=== PATIENT | male | born 1995 | race Caucasian/White ===

== ENCOUNTER 2018-07-20 18:33 | Emergency (ER) | payer OTHER ==
[2018-07-20] MEDS ORDERED: SULFAMETH/TRIMETH DS 800/160 MG TABLET PO STA (18:57)
[2018-07-20] MEDS ORDERED: cephALEXin 250 MG CAPSULE PO STA (18:57)
--- NOTE | 2018-07-20 18:59 | ED Physician Documentation ---
History of Present Illness - Stated complaint Stated Complaint: L HAND BITE/SWELLING - Chief complaint Chief Complaint: General - History obtained from History obtained from: Patient - History of Present Illness Timing: Last night (Healthy 22-year-old gentleman who is right-handed and active duty in the [employer] thinks he might of gotten bitten by something last night. He has a pustule on the dorsum of the left hand with surrounding redness. No fevers.) Review of Systems Constitutional: reports: Reviewed and negative Nose: reports: Reviewed and negative Cardiac: reports: Reviewed and negative PD PAST MEDICAL HISTORY - Past Medical History Past Medical History: No - Past Surgical History Past Surgical History: No - Present Medications Home Medications: Ambulatory Orders Medication Instructions Recorded Confirmed Cephalexin [Keflex] 500 mg PO Q6H #28 capsule 07/20/18 Sulfamethoxazole/Trimethoprim 1 each PO BID #14 tablet 07/20/18 [Sulfamethoxazole-Tmp Ds Tablet] - Allergies Allergies/Adverse Reactions: Allergies Allergy/AdvReac Type Severity Reaction Status Date / Time No Known Drug Allergies Allergy Verified 07/20/18 18:38 - Social History Does the pt smoke?: Yes Smoking Status: Current every day smoker Does the pt drink ETOH?: No Does the pt have substance abuse?: No - Immunizations Immunizations are current?: Yes - POLST Patient has POLST: No PD ED PE NORMAL - Vitals Vital signs reviewed: Yes - General General: Alert and oriented X 3, No acute distress - Extremities Extremities: No calf tenderness / cord, Other (There is a tiny pustule on the dorsum of the left hand near the fourth MCP with cellulitis of most of the dorsum of the hand but no pain out of proportion to exam, crepitance, or limited range of motion. The pustule was expressed manually during examination and some serous fluid was obtained and sent for culture.) - Neuro Neuro: Alert and oriented X 3, Normal speech Results - Vitals Vitals: Vital Signs - 24 hr 07/20/18 18:36 Temperature 37.4 C Heart Rate 79 Respiratory 20 Rate Blood Pressure 168/72 H O2 Saturation 98 Oxygen O2 Source Room air Departure - Departure Disposition: 01 Home, Self Care Clinical Impression: Cellulitis of left hand Condition: Good Record reviewed to determine appropriate education?: Yes Instructions: Cellulitis Dc Prescriptions: Cephalexin [Keflex] 500 mg PO Q6H #28 capsule Sulfamethoxazole/Trimethoprim [Sulfamethoxazole-Tmp Ds Tablet] 1 each PO BID #14 tablet Comments: We are performing a wound culture, the results should be done in 48-72 hours. If antibiotic change is necessary we will call you. Return if worse in the meantime, especially if you develop increased pain, fevers, cannot keep down the medication. Otherwise follow-up with your physician in approximately 2-3 days. Your blood pressure was elevated today on check into the emergency department. This does not mean that you have hypertension, it is a common phenomenon to come to the emergency department and have elevated blood pressure. I recommend that you see your primary care physician within the week to have it rechecked when you are feeling better.
[2018-07-20 19:05] VITALS: BP 168/72
== END 2018-07-20 19:05 | disposition home or self-care (01) ==
LOC: ED 18:33
DX: L03.114 Cellulitis of left upper limb (principal); R03.0 Elevated blood-pressure reading, without diagnosis of hypertension; F17.200 Nicotine dependence, unspecified, uncomplicated
CPT/HCPCS: 87070; 87181; 87205; 99283; A9270

== ENCOUNTER 2018-07-21 13:52 | Observation (INO) | payer OTHER ==
--- NOTE | 2018-07-21 14:17 | ED Physician Documentation ---
History of Present Illness - Stated complaint Stated Complaint: LT HAND SWELLING/SENT BY - Chief complaint Chief Complaint: General - History obtained from History obtained from: Patient, Friend - History of Present Illness Timing: Yesterday Pain level max: 6 Pain level now: 4 - Additonal information Additional information: 22-year-old male with cellulitis of the left hand, seen here last night and given a dose of Bactrim. Symptoms have worsened today. Was told to return for admission to the hospital. Worse with movement, better with rest Review of Systems Ten Systems: 10 systems reviewed and negative Constitutional: denies: Fever, Chills Respiratory: denies: Cough GI: denies: Abdominal Pain, Vomiting Skin: denies: Rash PD PAST MEDICAL HISTORY - Past Medical History Past Medical History: No - Past Surgical History Past Surgical History: No - Present Medications Home Medications: Ambulatory Orders Medication Instructions Recorded Confirmed Cephalexin [Keflex] 500 mg PO Q6H #28 capsule 07/20/18 Sulfamethoxazole/Trimethoprim 1 each PO BID #14 tablet 07/20/18 [Sulfamethoxazole-Tmp Ds Tablet] - Allergies Allergies/Adverse Reactions: Allergies Allergy/AdvReac Type Severity Reaction Status Date / Time No Known Drug Allergies Allergy Verified 07/21/18 14:01 - Social History Does the pt smoke?: Yes Smoking Status: Current every day smoker Does the pt drink ETOH?: No Does the pt have substance abuse?: No - Immunizations Immunizations are current?: Yes - POLST Patient has POLST: No PD ED PE NORMAL - Vitals Vital signs reviewed: Yes - General General: Alert and oriented X 3, No acute distress - HEENT HEENT: Moist mucous membranes - Neck Neck: Supple, no meningeal sign - Cardiac Cardiac: RRR - Respiratory Respiratory: No respiratory distress, Clear bilaterally - Abdomen Abdomen: Soft, Non tender, Non distended - Derm Derm: Warm and dry - Extremities Extremities: Other (L hand swelling and erythema (5x6cm) to the dorsum of the hand. Pain in the dorsum of the hand with movement of the fingers. NVI. No crepitus. ) - Neuro Neuro: Alert and oriented X 3 Results - Vitals Vitals: Vital Signs - 24 hr 07/21/18 13:56 Temperature 37.1 C Heart Rate 89 Respiratory 18 Rate O2 Saturation 99 Oxygen O2 Source Room air - Labs Labs: Laboratory Tests 07/21/18 07/21/18 07/21/18 14:29 14:29 14:32 WBC 15.5 H RBC 5.18 Hgb 16.0 Hct 46.6 MCV 90.1 MCH 30.9 MCHC 34.3 RDW 13.6 Plt Count 218 MPV 7.9 Neut # (Auto) 13.5 H Lymph # (Auto) 0.9 L Loup # (Auto) 0.7 Eos # (Auto) 0.3 Baso # (Auto) 0.1 Absolute Nucleated RBC 0.01 Nucleated RBC % 0.0 Sodium 136 Potassium 3.6 Chloride 100 L Carbon Dioxide 24 Anion Gap 12.0 BUN 13 Creatinine 0.9 Estimated GFR (MDRD) 108 Glucose 135 H Lactic Acid 1.3 Calcium 8.9 Total Bilirubin 1.4 H AST 26 ALT 34 Alkaline Phosphatase 83 Total Protein 7.0 Albumin 4.3 Globulin 2.7 Albumin/Globulin Ratio 1.6 Lipase 23 PD MEDICAL DECISION MAKING - ED course Complexity details: reviewed results, re-evaluated patient, considered differential, d/w patient ED course: 22-year-old male with cellulitis worsening despite oral antibiotics of the dorsum of the left hand. Pain with range of motion of the fingers. No palmar tenderness. No evidence of deep space infection. No crepitus. Was supposed to be directly placed in obs to the hospital, but was registered in the emergency department, therefore I contacted the hospitalist and it was requested that I order the MRI in the emergency department due to the time of day. Therefore this was performed. IV antibiotics given. Blood drawn. Patient will be placed in observation with the hospitalist, Dr. Huber. This document was made in part using voice recognition software. While efforts are made to proofread this document, sound alike and grammatical errors may occur. Departure - Departure Disposition: ED Place in Observation Clinical Impression: Cellulitis of left hand Condition: Stable
[2018-07-21] MEDS ORDERED: VANCOMYCIN INJ 1 GM in SODIUM CHLORIDE 0.9% 500 ML IV STA (14:21)
[2018-07-21] MEDS ORDERED: SODIUM CHLORIDE 0.9% 1,000 ML IV ONE (14:22)
[2018-07-21 14:40] LABS: BASOPHILS # (AUTO) 0.1 10^3/uL (0.0-0.1); BASOPHILS % (AUTO) 0.4 %; EOSINOPHILS # (AUTO) 0.3 10^3/uL (0.0-0.7); LYMPHOCYTES # (AUTO) 0.9 10^3/uL (1.5-3.5); LYMPHOCYTES % (AUTO) 5.7 %; MEAN CORPUSCULAR HEMOGLOBIN 30.9 pg (27.0-31.0); MEAN CORPUSCULAR HGB CONC 34.3 g/dL (32.0-36.0); MEAN CORPUSCULAR VOLUME 90.1 fL (80.0-94.0); MEAN PLATELET VOLUME 7.9 fL (7.4-11.4); MONOCYTES # (AUTO) 0.7 10^3/uL (0.0-1.0); MONOCYTES % (AUTO) 4.5 %; NEUTROPHILS # (AUTO) 13.5 10^3/uL (1.5-6.6); NEUTROPHILS % (AUTO) 87.4 %; PLT - PLATELET COUNT 218 10^3/uL (130-450); RED BLOOD COUNT 5.18 10^6/uL (4.70-6.10); RED CELL DISTRIBUTION WIDTH 13.6 % (12.0-15.0); WHITE BLOOD COUNT 15.5 x10^3/uL (4.8-10.8)
[2018-07-21] MEDS ORDERED: SODIUM CHLORIDE FLUSH 0.9% 10 ML SYRINGE IVP PRN (14:45)
[2018-07-21] MEDS ORDERED: ONDANSETRON 4 MG/2 ML VIAL IVP PRN (14:45)
[2018-07-21] MEDS ORDERED: ACETAMINOPHEN 325 MG TABLET PO PRN (14:45)
[2018-07-21] MEDS ORDERED: ONDANSETRON ODT 4 MG TABLET TL PRN (14:45)
[2018-07-21] MEDS ORDERED: oxyCODONE 5 MG TABLET PO PRN (14:45)
[2018-07-21 14:52] LABS: ALBUMIN 4.3 g/dL (3.2-5.5); ALBUMIN/GLOBULIN RATIO 1.6 (1.0-2.2); BILIRUBIN,TOTAL 1.4 mg/dL (0.2-1.0); CALCIUM 8.9 mg/dL (8.5-10.3); CREATININE 0.9 mg/dL (0.6-1.2)
[2018-07-21] MEDS ORDERED: SODIUM CHLORIDE 0.9% 1,000 ML IV SCH (15:00)
[2018-07-21] MEDS ORDERED: VANCOMYCIN INJ 1 GM in SODIUM CHLORIDE 0.9% 250 ML IV ONE (17:00)
[2018-07-21] MEDS: SODIUM CHLORIDE FLUSH 0.9% 10 ML SYRINGE IVP SCH (17:36)
--- NOTE | 2018-07-21 18:03 | HISTORY & PHYSICAL EXAMINATION ---
DATE OF SERVICE: 07/21/2018 Physician: Stefania Huber MD PRIMARY CARE PROVIDER: [facility]. ORTHOPEDIC SURGEON: Arpan Madden. Clinic [phone] or [phone], cell phone [phone]. ADMITTING PROVIDER: Stefania Huber MD. CHIEF COMPLAINT: Left hand infection unresponsive to outpatient management. 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 He is completely healthy and states that the only bad thing he does to his body is smoke half a pack per day. He has no history of diabetes, immunosuppressive disorders, and is usually in good health. He woke up yesterday morning with a painful left hand. He had a small pimple between his fourth and fifth finger on the dorsum of his hand near his fourth knuckle. That part of the hand over the dorsum was red and swollen. He was seen in the emergency room by Dr. Fuad Dean, where he was afebrile. The pimple was popped, and a small amount of fluid was expressed. He was put on empiric antibiotic therapy with Keflex and Bactrim. He did receive a dose of IV antibiotics in the ER. The patient did not fill his prescriptions overnight. He did not get any medication until this morning. He was seen in the family practice clinic with orthopedic consult by Dr. Arpan Madden at the [facility]. Dr. Madden felt that this patient has failed outpatient therapy, he can clearly see a delineation of the redness and heat where the pen marking from yesterday identifies yesterday's exam. Today's exam shows inches of more skin recruited, more of the hand is swollen and tender. His white blood count is now 14. He does not have a fever. Dr. Madden has requested observation status. He would like an MRI of the hand done to make sure there is no abscess in that knuckle space requiring surgery. PAST MEDICAL HISTORY: None. Patient has never been hospitalized, never had any surgeries. He has no medical illnesses. MEDICATIONS: None. He has not taken the Keflex or Bactrim prescribed to him until just this morning. He does not take anything on a regular basis. ALLERGIES: NO KNOWN DRUG ALLERGIES. SOCIAL HISTORY: He is from [place]. 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 He smokes 1/2 pack per day, as well as chew. He does not drink at all because he is under age. FAMILY HISTORY: Mom is 41 years old and has pancreas divisum. She has had bouts of pancreatitis. But no high blood pressure, diabetes, cancer, heart attack, stroke, thyroid. Dad is 42 and completely healthy. Two younger sisters are completely healthy. He has no children. He is FULL CODE status. PREVIOUS LEVEL OF FUNCTION: Active duty [employer] personnel. Completely independent for activities of daily living, uses no durable medical equipment. Drives, etc. REVIEW OF SYSTEMS: A review of systems was obtained for constitutional, ENT, cardiac, pulmonary, GI, , skin, joint, psych and MANAGER [employer]. All were negative other than for this current symptomatology of his left hand. PHYSICAL EXAMINATION He is seen in the emergency room. VITAL SIGNS: Temperature is 37.1, pulse is 89, blood pressure 146/72, respirations 18, 99% on room air. GENERAL: He is a young 6-foot 3-inch, white male at 108 kilograms. He is alert, oriented, in no acute distress, with his commanding officer/boss at the bedside. HEENT: Normocephalic, atraumatic skull. Pupils equal, round, reactive to light and accommodation. Sclerae nonicteric. Moist pink oral mucosa. No facial asymmetry. Speech normal. Back of throat normal. NECK: Supple without goiter, adenopathy or bruits. LUNGS: Clear to auscultation and percussion. No crackles, rhonchi, or wheezing. No increased respiratory effort speaking to me. CARDIAC: Regular rate and rhythm without any murmurs, rubs or gallops. ABDOMEN: Soft, nontender. No organomegaly. Normal bowel sounds. EXTREMITIES: No clubbing, cyanosis or edema. All grossly normal in appearance. That is, until you get to the left hand. He has the same pimple boil between the fourth and fifth fingers on the left hand on the dorsum of his hand. It is closer to his fourth knuckle. Redness has enveloped fifth, fourth and third fingers on the dorsum. There is diffuse finger swelling of sausage digits. Redness and cellulitis and heat has extended the entire dorsum of his hand up to almost the wrist now. There is a small spot above the ulnar joint space where the redness and heat are extending up there. He has flexion and extension of his hand intact. Flexion and extension of his finger digits and metacarpals. NEUROLOGIC: He is alert and oriented to person, place and time. Follows 2-step commands normally. Speech is normal. Cranial nerves 2-12 are normal. Upper and lower extremity strength testing is normal. Upper and lower extremity sensation is normal. He has no gait ataxia, and can sit to transfer to a standing position without any difficulty or gait ataxia. He does it in less than 15 seconds. LABORATORY DATA: Sodium 136, potassium 3.6, BUN 13, creatinine 0.9, glucose 135, lactic acid 1.3, total bilirubin 1.4. Liver enzymes normal. Lipase 23. White cell count is 15.5, hemoglobin 16, hematocrit 46. Neutrophils are high. ASSESSMENT AND PLAN 1. Cellulitis, left hand. There is no previous blow to the hand. No injury. He lives in a dorm situation with multiple other [employer] personnel. No one else has boils or furuncles. I suspect methicillin-resistant Staphylococcus aureus. PLAN 1. Observation stay. 2. ATTESTATION: The patient will be discharged within 96 hours. 3. Vancomycin per pharmacy protocol. 4. Check daily BMP and CBC to assess response. 5. Orthopedic consult. 6. MRI of left hand to assess for abscess. The patient has failed outpatient management with worsening infection and a rising white cell count. 2. FULL CODE STATUS. 3. Deep venous thrombosis prophylaxis will be JAZMYN duvall. He is at low risk. Ambulatory. TD: 07/21/2018 15:56 Revised 07/25/2018 jll Account/Administrative Support Specialist Correction Orig. signed 07/22/2018 @ 1639 HOPE
[2018-07-21] MEDS ORDERED: MORPHINE 2 MG/ML CARPUJECT IVP PRN (20:01)
[2018-07-21] MEDS ORDERED: GADOBUTROL 15 MMOL/15 ML VIAL ONE (21:02)
[2018-07-21] MEDS ORDERED: GADOBUTROL 15 MMOL/15 ML VIAL IVP ONE ×2 (22:06)
--- NOTE | 2018-07-21 22:49 | MRI Report ---
Reason: SPREADING CELULITTUS, POSS ABCESS Procedure Date: 07/21/2018 Accession Number: [id number] / [id number] Procedure: MRI - Hand LT W/WO CPT Code: FULL RESULT: IMPRESSION:llulitis. No drainable abscess collection. No evidence of osteomyelitis.
[2018-07-22] MEDS: VANCOMYCIN INJ 1 GM, VANCOMYCIN INJ 500 MG in SODIUM CHLORIDE 0.9% 500 ML IV SCH ×2 (00:17→08:26)
[2018-07-22] MEDS ORDERED: VANCOMYCIN 500 MG VIAL ONE (00:25)
[2018-07-22] MEDS ORDERED: SODIUM CHLORIDE 0.9% 500 ML IV ONE (00:25)
[2018-07-22] MEDS: SODIUM CHLORIDE FLUSH 0.9% 10 ML SYRINGE IVP SCH ×2 (00:33→10:42)
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
--- NOTE | 2018-07-22 08:29 | Discharge Plan ---
Discharge Plan Disposition: Home, Self Care Condition: Good Prescriptions: oxyCODONE [Roxicodone] 5 mg PO Q4HR PRN #30 tablet PRN Reason: Pain 5 to 7 Sulfamethoxazole/Trimethoprim [Bactrim 400-80 mg Tablet] 1 each PO BID #14 tablet Diet: Regular Activity Restrictions: Dr. Madden wants you to elevate arm and and with splints in place Shower Restrictions: No Driving Restrictions: No Assistance Devices: Other (splints) Additional Instructions or Follow Up instructions: You were placed in observation because you have an infection in your hand. We think the infection is methicillin-resistant staph aureus. You had gotten worse in the 24 hours prior to coming into the hospital. The MRI during this stay shows that there is no abscess or fluid collection along the joint or tendon sheath. We think that you will successfully recover with oral antibiotics. You will be sent home on 2 antibiotics called Keflex and Bactrim. You need to finish both of them. Do not skip doses. Do not drink alcohol with these antibiotics. For pain, you are being sent home with 30 tablets of oxycodone. Use those sparingly. If possible use 1 tablet of oxycodone with 1 Tylenol or 1 Motrin up to 3 times a day for pain. Oxycodone can constipate you to make sure you take a stool softener while you are taking these pills. Please see your orthopedic surgeon on Tuesday morning at 8 AM as he instructed. Dr. Zamora will be the surgeon that sees you. It will be he the decides when you will go back to work. You can take off the splints to take a bath or shower. We will put them back on. No Smoking: If you smoke, Please STOP! Call for help. Follow-up with: VENITA KNOX [Primary Care Provider] -
[2018-07-22] MEDS ORDERED: POLYETHYLENE GLYCOL 3350 17 GM PACKET PO SCH (09:00)
[2018-07-22 10:50] VITALS: BP 134/53
--- NOTE | 2018-07-22 13:30 | DISCHARGE SUMMARY ---
Physician: Stefania Huber MD DATE OF ADMISSION: 07/21/2018 DATE OF DISCHARGE: 07/22/2018 DISCHARGE DIAGNOSES 1. Left hand cellulitis. 2. Failure of outpatient therapy. DISCHARGE MEDICATIONS 1. Keflex 500 mg p.o. q.i.d. 2. Bactrim double strength p.o. b.i.d. 3. Roxicodone 5 mg p.o. q.4 hours p.r.n., #30. PRINCIPAL PROCEDURE: MRI of hand with no drainable abscess collection, no evidence of osteomyelitis. HOSPITAL COURSE: He is a 22-year-old, white male who is completely healthy. 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 He woke up on the morning before admission with a very painful fourth knuckle of finge r that seemed to have a blister on it. He felt like it was an insect bite. He went to the emergency room, where he was seen to have cellulitis compatible with MRSA cellulitis. The blister was lanced, and he was given Keflex and Bactrim. At that time, no labs were done and he did not have a fever. He could not get his medications filled until today. On the day of admission, he woke up with the raymond nd even more swollen, more tender and redness now extending to the entire dorsum of his hand to his w rist. He was seen at [facility] by Orthopedics. They were alarmed at the tenderness of the joint with effusion below with possible abscess. His fourth and fifth fingers were now sausage-like, cellulitis was on the dorsum of the hand, extending almost just above the uln ar joint. White cell count was 15.6 thousand in their clinic. The patient was referred to us for direct admission because of failure of outpatient management. On admission, the patient was afebrile. White cell count was 15.5 thousand. Temperature was 37.1. Pul se was 76, blood pressure 136/62, respirations 18, 97% on room air. The patient was immediately started on vancomycin. Cultures from the day before were still pending. With this admission, he had blood cultures redone. Overnight, the hand improved tremendously. Edema was still present in the fourth and fifth fingers, and now included the index and third fingers. The redness and heat on the dorsum of hand had abated considerably. The one punctate lesion at the base of the fourth knuckle at the MCP dorsal hand was d ry. The redness that had gone up to the ulnar joint had now receded. The patient was able to flex h is wrist. He was also kept with his hand elevated overnight. Orthopedic Surgery saw him in consult and felt he was stable for discharge, in view of the fact that the MRI showed no abscess, no tenosyno vitis that needed surgery. He still has the Keflex that he was discharged with. For some reason, the Bactrim was not filled. A s such, Bactrim was called into [facility], as was Roxicodone 30 tablets. He has received strict instructions from Dr. Madden, Orthopedics. He is to see them in the clinic 8 o'clock Tuesday morning. They will reassess his hand. They will reassess when he can return to work. I have also asked the patient to please stop smoking, since he smokes half a pack per day, and we d escribed the microvascular complications that would impede wound healing. He is discharged in stable condition. PHYSICAL EXAMINATION VITAL SIGNS: Temperature 36.9. T-max was 37.4. GENERAL: White cell count was normal at 10.3 (lactic acid had been 1.3 on admission). He is a young , 22-year-old male in no acute distress. NECK: Supple. No adenopathy. LUNGS: Clear to auscultation and percussion. He has absolutely no respiratory distress with walking , talking. HEART: PMI is normally placed with a regular rate and rhythm. ABDOMEN: Soft, nontender. No organomegaly. EXTREMITIES: Without clubbing, cyanosis or edema, except for that left hand. NEUROLOGIC: He is able to sit up to stand to transfer, ambulate without assistance. TD: 07/22/2018 12:04
== END 2018-07-22 10:56 | disposition home or self-care (01) ==
LOC: ED 13:52 → OBS 14:45
PROVIDERS: ADMIT Specialist; ATTEND Specialist
DX: L03.114 Cellulitis of left upper limb (principal); F17.210 Nicotine dependence, cigarettes, uncomplicated; F17.220 Nicotine dependence, chewing tobacco, uncomplicated
CPT/HCPCS: 36415; 73220; 80053; 83605; 83690; 85025; 87040; 96365; 96366; A9585; G0378; J3370; 99283

== ENCOUNTER 2018-07-25 17:52 | Emergency (ER) | payer OTHER ==
[2018-07-25] MEDS ORDERED: predniSONE 20 MG TABLET PO STA (18:02)
--- NOTE | 2018-07-25 18:05 | ED Physician Documentation ---
PD HPI WOUND RECHECK - Stated complaint Stated Complaint: OPEN WOUND - Chief complaint Chief Complaint: Wound - Histroy obtained from History obtained from: Patient - History of Present Illness Location: Left Uppper Extremity (He was seen last week for a dorsal hand infection and sent home on Keflex and Bactrim. For reasons that are completely clear only the Keflex got filled. He bounced back the next day and was direct admitted and placed on vancomycin for a day. The MRI was negative for abscess and he improved. In the interim the initial wound culture grew regular staph, not MRSA. He started Bactrim 3 days ago and today he has an itchy rash all over and increased wound drainage. No fevers.) Review of Systems Constitutional: denies: Fever, Chills GI: denies: Abdominal Pain, Nausea, Vomiting Skin: denies: Rash, Lesions PD PAST MEDICAL HISTORY - Past Medical History Cardiovascular: None Respiratory: None Neuro: None Endocrine/Autoimmune: None GI: None : None HEENT: None Psych: None Musculoskeletal: None, Other (As per HPI) Derm: None, Other (Cellulitis as per HPI) - Past Surgical History Past Surgical History: No - Present Medications Home Medications: Ambulatory Orders Medication Instructions Recorded Confirmed Cephalexin [Keflex] 500 mg PO QID 07/22/18 07/22/18 Sulfamethoxazole/Trimethoprim 1 each PO BID #14 tablet 07/22/18 [Bactrim 400-80 mg Tablet] oxyCODONE [Roxicodone] 5 mg PO Q4HR PRN #30 tablet 07/22/18 predniSONE [Deltasone] 60 mg PO DAILY 5 Days tablet 07/25/18 - Allergies Allergies/Adverse Reactions: Allergies Allergy/AdvReac Type Severity Reaction Status Date / Time No Known Drug Allergies Allergy Verified 07/21/18 14:01 - Social History Does the pt smoke?: Yes Smoking Status: Current every day smoker Does the pt drink ETOH?: No Does the pt have substance abuse?: No - Immunizations Immunizations are current?: Yes - POLST Patient has POLST: No PD ED PE NORMAL - Vitals Vital signs reviewed: Yes - General General: Alert and oriented X 3, No acute distress - Derm Derm: Other (He has a diffuse macular rash. No oral lesions. No peeling. The dorsum of the left hand is swollen red but the cellulitis has improved but I was able to squeeze quite a bit of purulent material out of the pore on the hand.) - Neuro Neuro: Alert and oriented X 3, Normal speech Results - Vitals Vitals: Vital Signs - 24 hr 07/25/18 17:54 Temperature 37.1 C Heart Rate 94 Respiratory 18 Rate Blood Pressure 142/62 H O2 Saturation 100 Oxygen O2 Source Room air PD MEDICAL DECISION MAKING - ED course ED course: He has improving cellulitis but a little more purulent drainage now that was completely expressed during examination. Given the timing of suspect the sulfa antibiotic is the cause of the drug eruption and he is advised to discontinue this and is placed on steroids. The pore on the hand now actually is significant purulent drainage and it was locally infiltrated with buffered lidocaine and then 1/4 inch packing was placed. He is following up with the orthopedic surgeon tomorrow. I left a message for him to call me. Departure - Departure Disposition: Home, Self Care Clinical Impression: Cellulitis of left hand, Drug eruption Condition: Good Record reviewed to determine appropriate education?: Yes Instructions: Cellulitis Dc Prescriptions: predniSONE [Deltasone] 60 mg PO DAILY 5 Days tablet Comments: Discontinue the Bactrim. Keep the hand elevated. Return for worsening redness or swelling or pain. Also return if you develop sores in your mouth. Or fever. Your blood pressure was elevated today on check into the emergency department. This does not mean that you have hypertension, it is a common phenomenon to come to the emergency department and have elevated blood pressure. I recommend that you see your primary care physician within the week to have it rechecked when you are feeling better.
[2018-07-25 18:24] VITALS: BP 112/64
== END 2018-07-25 18:24 | disposition home or self-care (01) ==
LOC: ED 17:52
DX: L03.114 Cellulitis of left upper limb (principal); L27.0 Generalized skin eruption due to drugs and medicaments taken internally; T37.0X5A Adverse effect of sulfonamides, initial encounter; R03.0 Elevated blood-pressure reading, without diagnosis of hypertension; F17.200 Nicotine dependence, unspecified, uncomplicated
CPT/HCPCS: 99283; J7512

== ENCOUNTER 2021-10-28 19:15 | Emergency (ER) | payer OTHER ==
--- NOTE | 2021-10-28 20:02 | ED Physician Documentation ---
History of Present Illness - Stated complaint Stated Complaint: R HAND SWELLING AND BURNING - Chief complaint Chief Complaint: Ext Problem - History obtained from History obtained from: Patient - History of Present Illness Timing: How many days ago (2) Pain level max: 4 Pain level now: 3 - Additonal information Additional information: 26-year-old male presents to the emergency department with redness and swelling to the dorsum of the right hand. Had cellulitis to the other hand previously. 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 Tetanus up-to-date. Worse with movement, better with rest. No fevers. No chills. Review of Systems Constitutional: denies: Fever, Chills GI: denies: Nausea, Vomiting PD PAST MEDICAL HISTORY - Past Medical History Past Medical History: Yes Cardiovascular: None Respiratory: None Neuro: None Endocrine/Autoimmune: None GI: None : None HEENT: None Psych: None Musculoskeletal: None, Other Derm: None, Other - Past Surgical History Past Surgical History: No - Present Medications Home Medications: Ambulatory Orders Medication Instructions Recorded Confirmed Sulfamethoxazole/Trimethoprim 1 each PO BID #14 tablet 07/22/18 [Bactrim 400-80 mg Tablet] cephALEXin [Keflex] 500 mg PO QID 07/22/18 07/22/18 oxyCODONE [Roxicodone] 5 mg PO Q4HR PRN #30 tablet 07/22/18 predniSONE [Deltasone] 60 mg PO DAILY 5 Days tablet 07/25/18 clindamycin HCL [Cleocin HCl] 300 mg PO Q6H #40 cap 10/28/21 - Allergies Allergies/Adverse Reactions: Allergies Allergy/AdvReac Type Severity Reaction Status Date / Time Sulfa (Sulfonamide Allergy Hives Verified 10/28/21 19:21 Antibiotics) - Social History Does the pt smoke?: Yes Smoking Status: Current every day smoker Does the pt drink ETOH?: No Does the pt have substance abuse?: No - Immunizations Immunizations are current?: Yes - POLST Patient has POLST: No PD ED PE NORMAL - Vitals Vital signs reviewed: Yes - General General: Alert and oriented X 3, No acute distress - Respiratory Respiratory: No respiratory distress - Derm Derm: Warm and dry - Extremities Extremities: Other (Mild swelling and erythema to the dorsum of the right hand. Full range of motion. No streaks. No tenderness over the palmar aspect of the hand. No abscess. Neurovascular intact) - Neuro Neuro: Alert and oriented X 3 Results - Vitals Vitals: Vital Signs - 24 hr 10/28/21 10/28/21 19:17 20:08 Temperature 36.9 C 36.8 C Heart Rate 67 65 Respiratory 14 15 Rate Blood Pressure 155/76 H 149/72 H O2 Saturation 98 99 Oxygen O2 Source Room air PD MEDICAL DECISION MAKING - ED course Complexity details: reviewed old records, considered differential, d/w patient ED course: 26-year-old male with cellulitis to the dorsum of the right hand. We will place on antibiotics. He is allergic to sulfa, we will utilize clindamycin. Patient counseled regarding signs and symptoms for which I believe and urgent re- evaluation would be necessary. Patient with good understanding of and agreement to plan and is comfortable going home at this time This document was made in part using voice recognition software. While efforts are made to proofread this document, sound alike and grammatical errors may occur. Departure - Departure Disposition: 01 Home, Self Care Clinical Impression: Cellulitis of right hand Condition: Good Instructions: ED Infec Skin Cellulitis Follow-Up: your,doctor in 1 week [Other] Prescriptions: clindamycin HCL [Cleocin HCl] 300 mg PO Q6H #40 cap Comments: Take all antibiotics until gone. Follow-up with your doctor next week for wound check. Return if you worsen. [facility] [place]. Discharge Date/Time: 10/28/21 20:08
[2021-10-28] MEDS: CLINDAMYCIN 150 MG CAPSULE PO STA (20:03)
[2021-10-28 20:09] VITALS: BP 149/72
== END 2021-10-28 20:08 | disposition home or self-care (01) ==
LOC: ED 19:15
DX: L03.113 Cellulitis of right upper limb (principal); F17.200 Nicotine dependence, unspecified, uncomplicated
CPT/HCPCS: 99282; A9270